=== PATIENT | female | born 1945 | race Caucasian/White ===

== ENCOUNTER 2020-10-26 06:44 | Day surgery (SDC) | payer MEDICARE, OTHER ==
[~2020-10-26] VITALS: Ht 177.8 cm; Wt 98.0 kg
[~2020-10-26 06:44] MED LIST: ALLO100T PO; AMLO-489 PO; ASPI-543 PO; CALC0.25 PO; CAR125T PO; CARB25TA79 PO; EMPA1TAB PO; FURO40TA4 PO; INSLISPI SC; INSU100I33 SC; ISOS60TA24 PO; NITR0.4D5 TD; NITR0.4S29 SL; OMEG100078 PO; PANT1INJ3 PO; POTA10TA51 PO; PRAV20TA3 PO; RANO500T2 PO
[2020-10-26] MEDS ORDERED: LIDOCAINE 2%HCL (LOCAL ANESTH.) INJ 20ML MDV ONE (07:23)
[2020-10-26] MEDS ORDERED: ANGIOMAX 250 MG VIAL IV ONE (07:38)
[2020-10-26] MEDS ORDERED: fentaNYL CITRATE 100 MCG/2 ML VL ONE (07:38)
[2020-10-26] MEDS ORDERED: SODIUM CHL 0.9% 0 ML ONE (07:39)
[2020-10-26] MEDS ORDERED: HEPARIN SODIUM (PORCINE) 5000 UNITS/ML 1ML VIAL ONE (07:39)
[2020-10-26] MEDS ORDERED: MIDAZOLAM HCL 2MG/2ML 2ml VIAL (1mg/ml) ONE (07:39)
[2020-10-26] MEDS ORDERED: VERAPAMIL 2.5MG/ML INJ 2ML VIAL IV ONE (07:39)
[2020-10-26] MEDS ORDERED: ONDANSETRON HCL 4 MG/2 ML VIAL IV PRN (09:00)
[2020-10-26] MEDS ORDERED: ACETAMINOPHEN 500 MG TAB PO PRN (09:00)
[2020-10-26] MEDS ORDERED: HYDROcodone-ACET 5/325MG TAB PO PRN (09:00)
== END 2020-10-26 11:18 | disposition home or self-care (01) ==
LOC: CATH 06:44
PROVIDERS: ATTEND Internal Medicine Cardiovascular Disease
DX: I25.10 Atherosclerotic heart disease of native coronary artery without angina pectoris (principal); I10 Essential (primary) hypertension; E11.9 Type 2 diabetes mellitus without complications; E78.5 Hyperlipidemia, unspecified; I25.2 Old myocardial infarction; Z95.5 Presence of coronary angioplasty implant and graft; Z82.49 Family history of ischemic heart disease and other diseases of the circulatory system; Z20.822 Contact with and (suspected) exposure to COVID-19; Z98.890 Other specified postprocedural states; Z79.899 Other long term (current) drug therapy
CPT/HCPCS: 75736; 93458; C1769; C1887; C1894; J1644; J2250; J3010; J7030; U0003; 93456; 99152